=== PATIENT | male | born 1955 | race Caucasian/White ===

== ENCOUNTER 2017-09-07 06:21 | Day surgery (SDC) | payer OTHER, MEDICARE ==
--- NOTE | 2017-09-07 07:16 | HP ---
Admitting History and Physical - Admission History of Present Illness: Patient is a 62 y/o male with a past medical history of mixed mood disorder, PTSD, hemocromotosis and NIDDM. Patient present for ect, patient has received ect in the past, he was recently admitted to [facility] from 08/01/17 to 08/09/17 and he received 2 ect session during his hospitalization. Patient reports struggling with depression within the past several years. However the depressive symptoms have worsened within the past year. Patient denies any suicidal or homicidal ideation, visual or auditory hallucinations. History Source: Patient Limitations to Obtaining History: No Limitations - Past Medical History Psych: Yes: Anxiety, Depression Endocrine: Yes: Diabetes Mellitus - Past Surgical History Past Surgical History: Yes: None - Smoking History Smoking history: Never smoked - Alcohol/Substance Use Hx Alcohol Use: Yes Number of Drinks Daily: 1 (every other day ) History of Substance Use: reports: None - Social History Usual Living Arrangement: Yes: Alone ADL: Independent Occupation: video production History of Recent Travel: No Home Medications - Allergies Allergies/Adverse Reactions: Allergies Allergy/AdvReac Type Severity Reaction Status Date / Time No Known Allergies Allergy Verified 09/06/17 15:18 - Home Medications Home Medications: Ambulatory Orders Ascorbic Acid [Vitamin C] 1,000 mg PO DAILY 09/06/17 Cholecalciferol (Vitamin D3) [Vitamin D] 2,000 unit PO DAILY 09/06/17 Clonazepam [Klonopin] 1 mg PO BID PRN 09/06/17 Glipizide 20 mg PO DAILY 09/06/17 [place] Carbonate [Eskalith -] 600 mg PO HS 09/06/17 Multivitamin [One Daily] 1 each PO DAILY 09/06/17 Family Disease History - Family Disease History Family Disease History: CA: Father (lung CA ), Other: Father, Mother (alive and well, hemocromotosis ), Brother (alive and well), Sister (alive and well ) Review of Systems - Review of Systems Constitutional: reports: No Symptoms Eyes: reports: No Symptoms HENT: reports: No Symptoms Neck: reports: No Symptoms Cardiovascular: reports: No Symptoms Respiratory: reports: No Symptoms Gastrointestinal: reports: No Symptoms Genitourinary: reports: No Symptoms Musculoskeletal: reports: No Symptoms Integumentary: reports: No Symptoms Neurological: reports: No Symptoms Endocrine: reports: No Symptoms Hematology/Lymphatic: reports: No Symptoms Psychiatric: reports: Depression Physical Examination Constitutional: Yes: Well Nourished, No Distress, Calm Eyes: Yes: WNL, Conjunctiva Clear, EOM Intact HENT: Yes: WNL, Atraumatic, Normocephalic Neck: Yes: WNL, Supple, Trachea Midline Cardiovascular: Yes: WNL, Regular Rate and Rhythm, S1, S2 Respiratory: Yes: WNL, Regular, CTA Bilaterally Gastrointestinal: Yes: WNL, Normal Bowel Sounds, Soft ...Rectal Exam: Yes: Deferred Renal/: Yes: WNL Musculoskeletal: Yes: WNL Extremities: Yes: WNL Edema: No Peripheral Pulses WNL: Yes Peripheral Pulses: Left Radial: 4+, Right Radial: 4+, Left Doralis Pedis: 3+, Right Dorsalis Pedis: 3+, Left Femoral: 3+, Right Femoral: 3+ Integumentary: Yes: WNL Neurological: Yes: WNL, Alert, Oriented ...Motor Strength: WNL Psychiatric: Yes: WNL, Alert, Oriented Labs: reviewed 08/13 Imaging - Results EKG: Report Reviewed, Image Reviewed, Other (nsr) Assessment/Plan patient is a 62 y/o male that presents for ect, labs and ekg reviewed patient is medically optimized for procedure informed consent, risks/benefits to be obtained by Dr Hickman.
[2017-09-07 07:33] VITALS: TEMP 98.1; BMI 28.7
[2017-09-07] MEDS ORDERED: KETOROLAC TROMETHAMINE 30 MG/1 ML VIAL ONE (08:01)
[2017-09-07] MEDS ORDERED: KETAMINE HCL 500 MG/10 ML VIAL ONE (08:01)
[2017-09-07 09:43] VITALS: BP 112/75; PULSE 60
--- NOTE | 2017-09-07 15:55 | EKG ---
Test Reason : Blood Pressure : / mmHG Vent. Rate : 070 BPM Atrial Rate : 070 BPM P-R Int : 160 ms QRS Dur : 086 ms QT Int : 374 ms P-R-T Axes : 037 056 057 degrees QTc Int : 403 ms NORMAL SINUS RHYTHM NORMAL ECG NO PREVIOUS ECGS AVAILABLE Confirmed by ANGELA ROBB, PRISCILA ([id number]) on 09/07/2017 3:54:54 PM Referred By: Remington Hickman Confirmed By:PRISCILA MILLER MD
== END 2017-09-07 09:20 | disposition home or self-care (01) ==
LOC: FECT 06:21
PROVIDERS: ATTEND Psychiatry & Neurology Psychiatry
PROC: GZB4ZZZ Other Electroconvulsive Therapy (ICD-10-PCS; principal; 2017-09-07 07:45)
DX: F33.2 Major depressive disorder, recurrent severe without psychotic features (principal)
CPT/HCPCS: 82962; 93005

== ENCOUNTER 2017-09-27 06:15 | Day surgery (SDC) | payer OTHER, MEDICARE ==
[2017-09-22 12:06] VITALS: BMI 28.7
[2017-09-27] MEDS ORDERED: KETAMINE HCL 500 MG/10 ML VIAL ONE (07:48)
[2017-09-27 08:51] VITALS: TEMP 97.8
[2017-09-27 09:19] VITALS: BP 120/74; PULSE 62
== END 2017-09-27 09:28 | disposition home or self-care (01) ==
LOC: FECT 06:15
PROVIDERS: ATTEND Psychiatry & Neurology Psychiatry
PROC: GZB4ZZZ Other Electroconvulsive Therapy (ICD-10-PCS; principal; 2017-09-27 07:45)
DX: F33.2 Major depressive disorder, recurrent severe without psychotic features (principal)
CPT/HCPCS: 82962; 90870; 94760